=== PATIENT | male | born 1975 | race Caucasian/White ===

== ENCOUNTER 2025-09-09 10:36 | Inpatient (IN) | payer OTHER, SELFPAY ==
[2025-09-09] VITALS (7 sets, daily range): BP systolic 121–181; BP diastolic 65–106; BMI 32.3; BMI 32.5
--- NOTE | 2025-09-09 08:13 | ED.GENMED ---
History of Present Illness
<Ayde Platt PA-C - Last Filed: 09/09/25 15:01>
General
Chief Complaint: Skin Surface Trauma
Time Seen by Provider: 09/09/25 07:35
History of Present Illness
History of Present Illness:
See MDM
Phy Exam
<Ayde Platt PA-C - Last Filed: 09/09/25 15:01>
Physical Exam
Physical Exam:
GENERAL: Alert , in no apparent distress, comfortable at rest
HEAD: NCAT
CV: Mildly tachycardic, DP pulses bilaterally intact
Lungs clear
NEUROLOGICAL: Alert and oriented, no focal neuro deficits, , 5/5 strength, sensation intact, ambulation slight limp right leg
SKIN: Warm and dry, patient has a large 5 cm blister to the plantar aspect of his right foot midfoot region and extending to the distal metatarsal region with some serous drainage, moderate soft tissue swelling to the whole foot, mild erythema to
the dorsum of the foot just proximal to the 4th and 5th toes with warmth, no significant tenderness
MUSCULOSKELETAL: mild STS right ankle with tenderness to malleolus medially; pain with inversion and eversion;
no tenderness at the base of the 5th metatarsal, no other foot tenderness
no knee/prox tib/fib tenderness, full painless ROM;
PSYCH: Normal and appropriate interaction.
Course
<Ayde Platt PA-C - Last Filed: 09/09/25 15:01>
Orders/Labs/Results
Orders:
Orders
09/09/25 Breakfast
2200 calorie (18 carb) Diabetic
At Your Request: Full Participation
Does patient need a safe tray?: No
09/09/25 07:47
CR Foot - Right Min 3 Views Urgent
Comment:
Reason For Exam: chornic wound, concern for osteo
09/09/25 07:48
Cardiac Monitoring- Treatment ONCE
0.9% Sodium Chloride 1000 ml [Nss] 1,000 ml IV BOLUS
09/09/25 08:16
Complete Blood Count/With Diff Urgent
Comprehensive Metabolic Panel Urgent
Hemoglobin A1c [Glycohemoglobin (HgbA1c)] Urgent
Lactic Acid Urgent
Blood Culture Q30M
KELLY Source: Blood/Venous
Specimen Description:
Blood Culture Q30M
KELLY Source: Blood/Venous
Specimen Description:
09/09/25 09:04
Ampicillin/Sulbactam 3 G [Unasyn] 3 gm 0.9% Sodium Chloride 100 ml [Nss] 100 ml IV NOW
Vancomycin [Vancocin] 2,000 mg 0.9% Sodium Chloride 500 ml [Nss] 500 ml IV NOW
09/09/25 09:46
Admit/Transfer Patient As Directed
Co-Sign Provider:
Level of Care: Inpatient admission
Assign to:: Telemetry
Physician / Group: Hospitalist
Diagnosis: Cellulitis right foot
Reason for Telemetry: Arrhythmia
Date to Stop Telemetry: 09/12/25
Time to Stop Telemetry: 11:00
Reason for Hospitalization: Cellulitis right foot
Expected length of stay greater than two midnights?: Yes
ELOS- Estimated Length of Stay in days: 2
I certify the patient meets the requirements for IP care: Yes
PRN Pain Medication Management As Directed
May give lesser potent ordered pain med per pt: Yes
preference::
Protocol:: Medication orders for pain may be administered in a
manner that supports deferring to patient preference
when the pt is:
- Requesting an ordered lesser potent pain medication.
Least to most potent pain medications are defined
as: acetaminophen < NSAID < tramadol < opioids
(morphine, oxycodone, hydromorphone).
- Requesting a lesser dose of the same medication IF
ORDERED.
- Requesting a less intrusive route of administration
if both routes are prescribed by the provider (PO <
IV).
09/09/25 09:47
Code Status As Directed
Resuscitation Status: Full Code
09/09/25 09:56
EKG [Electrocardiogram (*1)] Stat
Reason for Study: Tachycardia
Metoprolol [Lopressor] 5 mg IV NOW STA
09/09/25 12:17
Dextrose 50%-Water [Dextrose 50% Syringe] 12.5 grams IV [id number] PRN
Glucagon [GlucaGen] 1 mg IM PRN PRN
Insulin Aspart Corrective Low [Novolog Flexpen-Low Resistance] See Protocol SC AC
Metoprolol [Lopressor] 5 mg IV Q6HPRN PRN
09/09/25 12:17
INFECTIOUS DISEASE CONSULT Routine
Consulting Provider: Melba Mcgovern
Was physician already notified: Yes
PODIATRY CONSULT Routine
Consulting Provider: Julianna Massey
Was physician already notified: Yes
Activity As Directed
Activity Level: Out of Bed-Early Mobility
Bedside Glucose Monitoring As Directed
Frequency: AC&HS
Additional Instructions:: Change to q6h if pt on TPN, tube feeding or not eating
Intake/ Output As Directed
Frequency: Per unit guidelines
Vital Signs As Directed
Frequency: Per unit guidelines
DX Deep Vein Thrombosis Video Routine
09/09/25 14:00
Piperacillin/Tazo 3.375 Gram [Zosyn] 3.375 gram in 50 ml IV Q6H
09/09/25 18:00
Enoxaparin Sodium [Lovenox] 40 mg SC QPM
09/10/25 06:00
Complete Blood Count/With Diff IN AM
Comprehensive Metabolic Panel IN AM
09/12/25 11:00
DC Protocol for Telemetry ONCE
Abnormal Lab Results
09/09/25
08:16
WBC 14.1 H 10^3/uL
(4.8-10.8)
MCV 79.6 L fL
(80.0-94.0)
MCH 26.8 L pg
(27.0-31.0)
Abs Immat Gran (auto) 0.1 H 10^3/uL
(0-0.05)
Absolute Neuts (auto) 11.3 H 10^3/uL
(1.4-6.5)
Absolute Monos (auto) 1.3 H 10^3/uL
(0.1-0.6)
Immature Gran % 0.7 H %
(0-0.5)
Neutrophils % 80.3 H %
(42.2-75.2)
Lymphocytes % 8.5 L %
(20.5-51.1)
Monocytes % 9.4 H %
(1.7-9.3)
Sodium 133 L mmol/L
(135-145)
Chloride 94 L mmol/L
(98-107)
Creatinine 0.6 L mg/dL
(0.7-1.3)
Glucose 253 H mg/dl
(70-99)
Hemoglobin A1c 11.4 H %
(4.0-5.9)
09/09/25 08:16
09/09/25 08:16
Vital Signs
Initial and Last Documented VS:
Initial Vital Signs
Temp Pulse Resp BP Pulse Ox
37.5 C 120 20 159/106 97
09/09/25 06:17 09/09/25 06:17 09/09/25 06:17 09/09/25 06:17 09/09/25 06:17
Last Documented Vital Signs
Temp Pulse Resp BP Pulse Ox
37.0 C 118 18 181/100 97
09/09/25 12:26 09/09/25 12:26 09/09/25 12:26 09/09/25 12:26 09/09/25 12:26
<Pasquale Luciano MD - Last Filed: 09/09/25 08:14>
Orders/Labs/Results
Orders:
Orders
09/09/25 Breakfast
2200 calorie (18 carb) Diabetic
At Your Request: Full Participation
Does patient need a safe tray?: No
09/09/25 07:47
CR Foot - Right Min 3 Views Urgent
Comment:
Reason For Exam: chornic wound, concern for osteo
09/09/25 07:48
Cardiac Monitoring- Treatment ONCE
0.9% Sodium Chloride 1000 ml [Nss] 1,000 ml IV BOLUS
09/09/25 08:16
Complete Blood Count/With Diff Urgent
Comprehensive Metabolic Panel Urgent
Hemoglobin A1c [Glycohemoglobin (HgbA1c)] Urgent
Lactic Acid Urgent
Blood Culture Q30M
KELLY Source: Blood/Venous
Specimen Description:
Blood Culture Q30M
KELLY Source: Blood/Venous
Specimen Description:
09/09/25 09:04
Ampicillin/Sulbactam 3 G [Unasyn] 3 gm 0.9% Sodium Chloride 100 ml [Nss] 100 ml IV NOW
Vancomycin [Vancocin] 2,000 mg 0.9% Sodium Chloride 500 ml [Nss] 500 ml IV NOW
09/09/25 09:46
Admit/Transfer Patient As Directed
Co-Sign Provider:
Level of Care: Inpatient admission
Assign to:: Telemetry
Physician / Group: Hospitalist
Diagnosis: Cellulitis right foot
Reason for Telemetry: Arrhythmia
Date to Stop Telemetry: 09/12/25
Time to Stop Telemetry: 11:00
Reason for Hospitalization: Cellulitis right foot
Expected length of stay greater than two midnights?: Yes
ELOS- Estimated Length of Stay in days: 2
I certify the patient meets the requirements for IP care: Yes
PRN Pain Medication Management As Directed
May give lesser potent ordered pain med per pt: Yes
preference::
Protocol:: Medication orders for pain may be administered in a
manner that supports deferring to patient preference
when the pt is:
- Requesting an ordered lesser potent pain medication.
Least to most potent pain medications are defined
as: acetaminophen < NSAID < tramadol < opioids
(morphine, oxycodone, hydromorphone).
- Requesting a lesser dose of the same medication IF
ORDERED.
- Requesting a less intrusive route of administration
if both routes are prescribed by the provider (PO <
IV).
09/09/25 09:47
Code Status As Directed
Resuscitation Status: Full Code
09/09/25 09:56
EKG [Electrocardiogram (*1)] Stat
Reason for Study: Tachycardia
Metoprolol [Lopressor] 5 mg IV NOW STA
09/09/25 12:17
Dextrose 50%-Water [Dextrose 50% Syringe] 12.5 grams IV [id number] PRN
Glucagon [GlucaGen] 1 mg IM PRN PRN
Insulin Aspart Corrective Low [Novolog Flexpen-Low Resistance] See Protocol SC AC
Metoprolol [Lopressor] 5 mg IV Q6HPRN PRN
09/09/25 12:17
INFECTIOUS DISEASE CONSULT Routine
Consulting Provider: Melba Mcgovern
Was physician already notified: Yes
PODIATRY CONSULT Routine
Consulting Provider: Julianna Massey
Was physician already notified: Yes
Activity As Directed
Activity Level: Out of Bed-Early Mobility
Bedside Glucose Monitoring As Directed
Frequency: AC&HS
Additional Instructions:: Change to q6h if pt on TPN, tube feeding or not eating
Intake/ Output As Directed
Frequency: Per unit guidelines
Vital Signs As Directed
Frequency: Per unit guidelines
DX Deep Vein Thrombosis Video Routine
09/09/25 14:00
Piperacillin/Tazo 3.375 Gram [Zosyn] 3.375 gram in 50 ml IV Q6H
09/09/25 18:00
Enoxaparin Sodium [Lovenox] 40 mg SC QPM
09/10/25 06:00
Complete Blood Count/With Diff IN AM
Comprehensive Metabolic Panel IN AM
09/12/25 11:00
DC Protocol for Telemetry ONCE
Abnormal Lab Results
09/09/25
08:16
WBC 14.1 H 10^3/uL
(4.8-10.8)
MCV 79.6 L fL
(80.0-94.0)
MCH 26.8 L pg
(27.0-31.0)
Abs Immat Gran (auto) 0.1 H 10^3/uL
(0-0.05)
Absolute Neuts (auto) 11.3 H 10^3/uL
(1.4-6.5)
Absolute Monos (auto) 1.3 H 10^3/uL
(0.1-0.6)
Immature Gran % 0.7 H %
(0-0.5)
Neutrophils % 80.3 H %
(42.2-75.2)
Lymphocytes % 8.5 L %
(20.5-51.1)
Monocytes % 9.4 H %
(1.7-9.3)
Sodium 133 L mmol/L
(135-145)
Chloride 94 L mmol/L
(98-107)
Creatinine 0.6 L mg/dL
(0.7-1.3)
Glucose 253 H mg/dl
(70-99)
Hemoglobin A1c 11.4 H %
(4.0-5.9)
09/09/25 08:16
09/09/25 08:16
Vital Signs
Initial and Last Documented VS:
Initial Vital Signs
Temp Pulse Resp BP Pulse Ox
37.5 C 120 20 159/106 97
09/09/25 06:17 09/09/25 06:17 09/09/25 06:17 09/09/25 06:17 09/09/25 06:17
Last Documented Vital Signs
Temp Pulse Resp BP Pulse Ox
37.0 C 118 18 181/100 97
09/09/25 12:26 09/09/25 12:26 09/09/25 12:26 09/09/25 12:26 09/09/25 12:26
<Ayde Platt PA-C - Last Filed: 09/09/25 15:01>
MDM/Problems Addressed
Differential Diagnosis Includes:
see MDM
MDM/Problems Addressed:
Note:
CHIEF COMPLAINT(S)
Blister on foot and recent pain.
HISTORY OF PRESENT ILLNESS
The patient is a 49-year-old male does not seek medical attention in years, who presents with a blister on his foot. Four months ago, the patient stepped into a wet puddle and subsequently developed a blister approximately the size of a tennis ball.
The blister initially improved but never fully healed. Approximately two weeks ago, the pain intensified, especially when walking. The patient notes no numbness, but increasing pain in the last two weeks. Patient reports chills that lasted for
three to four days about a week ago, though he experienced no fever. There was hesitance in seeking medical care initially.
he has redness and some drainage on the plantar aspect of the foot
says 'my ankle is turned inward slightly'
no numbness
no known diabetes
did not step on any foreign object
PAST MEDICAL AND SURIGICAL HISTORY
- No past medical history reported.
SOCIAL HISTORY
- No reported smoking, alcohol, or drug use.
MEDICATIONS
- The patient is not taking any chronic medication.
REVIEW OF SYSTEMS
- Integumentary: Recurrent blister on the foot for four months, worsening pain over the past two weeks.
- Neurological: Denies numbness in lower extremities.
- Systemic: Recent history of chills without fever.
PHYSICAL EXAM
- Nursing notes reviewed and vital signs reviewed.
- Findings by system:
- Integumentary: Blister on the foot, persistent for four months. No specific details of inspection provided.
- Neurological: No numbness reported.
PLAN
- The plan includes obtaining X-rays and blood work to assess for infection.
- Concern was raised regarding potential underlying diabetes, given the history and presentation.
- Consideration for hospital admission and intravenous antibiotics if there is suspicion of a bone infection.
- Discussed the risks of infection spreading to the bone and the need for an MRI as definitive investigation if required.
DIFFERENTIAL DIAGNOSIS
The Differential Diagnosis includes, in no particular order and is not limited to:
1. Cellulitis
2. Osteomyelitis
3. Diabetic foot ulcer
4. Venous stasis ulcer
5. Peripheral neuropathy
6. Contact dermatitis
7. Deep vein thrombosis
8. Gout
9. Lymphedema
10. Peripheral artery disease
09/09/25 - 09:18
Patients blood sugar levels are elevated, patient likely with diabetes as her random blood sugar was over 250. X-ray independently reviewed by me was negative for obvious osteo however this does not definitively diagnose osteomyelitis. Given his
new onset diabetes with a obvious cellulitis purulent looking foot infection will admit for IV antibiotics.
<Ayde Platt PA-C - Last Filed: 09/09/25 15:01>
*Pulse Oximetry
Patient hypoxic: no (97)
*Critical Care Note
Total Time (30-74mins, 75-104mins- exclusive of procedures): Not Applicable
<Pasquale Luciano MD - Last Filed: 09/09/25 08:14>
*Pulse Oximetry
SaO2: 97
Oxygen Mode of Delivery: Room air
ED Attending Note
<Pasquale Luciano MD - Last Filed: 09/09/25 08:14>
ED Attending Note
Patient seen and examined by attending physician: Yes
I performed the substantive portion of visit, reviewed & personally made and approve the management plan that is documented in note by myself or ULICES.: Yes
ED Attending Note:
Patient with an ongoing nonhealing wound with recurrent blistering to the right foot. Symptoms have been worse the last 3 to 4 days. Encouraged to get checked. Some slight chills last evening no fever. Does not typically seek medical care. No
known medical issues.
On exam patient is nontoxic. He is mildly tachycardic and hypertensive. He is warm and dry perfusing well no respiratory distress. Right foot has erythema and swelling with swelling both on the plantar aspect and dorsal aspect. Erythema 3rd and
4th MTP area. Some drainage on the plantar surface.
Impression is cellulitis to the right foot. Would also consider a secondary osteomyelitis. Workup in progress. Clearly requires admission and IV antibiotics
-
Portions of this chart may have been created with voice recognition software.� Occasional wrong word or��sound alike� substitutions may have occurred due to the inherent limitations of voice recognition software.
Discharge Plan
Departure
Patient Disposition: Admit
Date of Disposition: 09/09/25
Time of Disposition: 08:59
Admit to: Med/Surg
Presentation/result/management discussed w/ accepting MD/DO: Hospitalist
Patient with high blood pressure during this ER visit?: Yes
Condition: Fair
Covid-19: Not Applicable
Discharge Problem:
Foot and toe(s), blister, infected, Cellulitis, Blood glucose elevated
Interventions
Interventions:
*Risk Screen - Suicide Last Done: 09/09/25 06:17
*General Assessment Last Done: 09/09/25 06:17
*Neglect/Abuse Screening Last Done: 09/09/25 06:17
*ED- Fall Risk Assessment Last Done: 09/09/25 06:17
*ED COVID-19 Vaccine History Last Done: 09/09/25 06:17
*ED Influenza Vaccine History Last Done: 09/09/25 06:17
*Nursing Disposition Last Done: 09/09/25 12:10
ED-Skin Assessment Last Done: 09/09/25 08:06
Discharge Date and Time
Discharge Date/Time: 09/09/25 12:16
[2025-09-09] MEDS: NSS 1000 IV (08:15)
[2025-09-09 08:29] LABS: Hematocrit 41.0 % (39.0-52.0); Hemoglobin 13.8 g/dL (13.0-18.0); Mean Corp Hgb Conc. 33.7 g/dL (33.0-37.0); Mean Corpuscular Volume 79.6 fL (80.0-94.0); Nucleated Red Blood Cells % 0 % (-); Platelet Count 341 10^3/uL (130-400); Red Cell Dist. Width 12.4 % (11.5-14.5)
[2025-09-09 08:42] LABS: ALT (SGPT) 24 U/L (0-50); AST (SGOT) 22 U/L (17-59); Albumin 4.0 g/dl (3.5-5.0); Alkaline Phosphatase 122 U/L (38-126); Blood Urea Nitrogen 15 mg/dl (9-20); Calcium 8.9 mg/dl (8.4-10.2); Carbon Dioxide 30 mmol/L (22-30); Chloride 94 mmol/L (98-107); Estimated Creatinine Clearance > 125 ml/min; Glucose 253 mg/dl (70-99); Potassium 3.6 mmol/L (3.5-5.1); Sodium 133 mmol/L (135-145); Total Protein 7.1 g/dl (6.3-8.2); eGFR > 60.00
--- NOTE | 2025-09-09 09:09 | HPS.HSE ---
Addendum entered and electronically signed by Ty Edgar MD 09/09/25 14:44:
I personally performed a history and physical exam of the patient and discussed management with the resident. I reviewed the resident's note and agree with the documented findings and plan of care HPI/CC.
49-year-old male without significant past medical history and does not follow-up with primary care provider came to the hospital with worsening right foot swelling and redness. Physical exam consistent with cellulitis. X-rays negative for
osteomyelitis. Consult podiatry and infectious disease. Blood culture drawn in the ED. Continue with empiric antibiotic. Blood sugar also elevated in the ED. Check A1c.
Cellulitis likely secondary to diabetic foot wound
Continue with empiric antibiotics
Podiatry evaluation, ID evaluation
Wound culture
X-ray negative for osteomyelitis
Hyponatremia
Monitor
Hypertension in the ED
No prior history
Likely new onset, start amlodipine. Metoprolol as needed
Hyperglycemia
No prior history of diabetes
Check A1c
Insulin sliding scale
DVT prophylaxis
Lovenox
Full code
Constitutional: No Acute Distress
Cardiovascular: Regular Rate and S1/S2; Negative Murmur
Pulmonary: Clear and Symmetric; Negative Wheezes, Rales or Rhonchi
Gastrointestinal: Soft, Non Tender, Non Distended and Normal Bowel Sounds
: no [place] val[place]
Wound: Other (callous over the right metatarsal heads, midfoot with large superficial blister draining purulent fluid)
I spent a total of 77 minutes with the patient or on the floor. More than 50% of this time involved counseling and coordination of care.
Original Note:
Family Physician
-
Family Physician: * NONE
Chief Complaint
-
Right foot cellulitis
History of Present Illness
49-year-old male with no significant past medical history and who does not see a primary care in years presents with a blister on his right foot. Patient reports that it started as a blister after stepping into a wet puddle, initially it has
improved well and was fully healed. But later 2 weeks ago he noticed another blister, which popped and pain when walking which has worsened, also reports some purulent drainage from the plantar aspect of the foot. And noticed his ankle was turned
inward slightly. Patient denies numbness/weakness in the left foot, no recent trauma. He denies fever, but reports having chills for 3/4 days in the past week. No chest pain, abdominal pain, SOB, lightheadedness/dizziness, bladder/bowel
disturbances.He does not take any medications on a regular basis. Used Tylenol/aspirin as needed for the pain.
ED course�BP�159/106, pulse 120, temperature 99.5. Elevated white count 14.1, sodium�133, BUN/creatinine�15/0.5, glucose 253. Lactate�1.0.
X-ray of the right foot�no evidence of osteomyelitis.Tissue visualized bilateral plate screw within the distal fibula and surgical screw within the medial malleolus.
Medical History
Past Medical History
Past Medical History: Reports None
Past Surgical History: Reports Orthopedic and Other
Social History
Tobacco: Non-smoker
Alcohol: None
Drug: None
Personal: Single
Living: Alone
Employment: Not Employed
Family History
Family History: Not pertinent
Allergies / Home Medications
Allergies reflects when Allergies were last updated in [employer].
Home Medications with original date entered in [employer]
Allergy/Medication List:
Allergies
Allergy/AdvReac Type Severity Reaction Status Date / Time
No Known Allergies Allergy Unverified 09/09/25 06:17
Home Medications
No Meds [No Current Medications] 09/09/25
Review of Systems
-
A 12 point ROS was completed and negative except as noted: Yes
Physical Exam
Vital Signs
Vital Signs
Temp Pulse Resp BP Pulse Ox
99.5 F 120 20 159/106 97
09/09/25 06:17 09/09/25 06:17 09/09/25 06:17 09/09/25 06:17 09/09/25 08:14
Physical Exam
General: Well Developed, Well Nourished and No Apparent Distress
HEENT: NormoCephalic and Atraumatic
Respiratory: Clear
Cardiac: S1/S2 and Tachycardia
GI: Soft, Non Tender, Non Distended and Normal Bowel Sounds
Musculoskeletal: Other (Right foot-distal neurovasculature, sensations intact. ROM good at the ankle joint. ROM restricted at the metatarsal phalangeal joints due to stiffness from the wound. DP pulses normal.)
Skin: Warm, Dry and Other (1 healed wound on the plantar surface, another blister posterior to the healed scar, wound area of approximately 1.5 X1 0.5 inches, tender, erythematous, draining serosanguineous fluid. There is some erythema on the
dorsal aspect of the foot.)
Neuro: Awake, Alert, Oriented and AO x 3
Laboratory Results
-
09/09/25 08:16
09/09/25 08:16
Laboratory Results
Lactic Acid 1.0 mmol/L (0.7-2.0) 09/09/25 08:16
Total Bilirubin 1.2 mg/dl (0.2-1.3) 09/09/25 08:16
AST 22 U/L (17-59) 09/09/25 08:16
ALT 24 U/L (0-50) 09/09/25 08:16
Alkaline Phosphatase 122 U/L (38-126) 09/09/25 08:16
Impression/Plan
-
IMPRESSION: 49-year-old presenting with wounds on the plantar surface of the right foot.
PLAN:
#Right foot infection
Elevated white count, patient is mildly tachycardic.
Likely cellulitis versus osteomyelitis versus diabetic foot ulcer versus abscess
Will check blood cultures
Start vancomycin, Zosyn
Consulted podiatry
Consulted infectious disease
Monitor fever curve. Monitor CBC
X-ray foot with no evidence of osteomyelitis
Will consider MRI, pending podiatry evaluation as the patient has chronic foot wound for the past 4 months.
Elevated blood sugars�253, patient has not seen a medical provider in years and was never diagnosed with diabetes
Will check HbA1c
Will add SSI
Admit to telemetry
#Elevated blood pressure
No prior history of hypertension
Will do Lopressor IV 5 mg as needed
Check EKG
May eventually need to be started on blood pressure medications if BP remains elevated during the hospital stay
Diet�carb controlled
DVT prophylaxis�Lovenox
Full code
[2025-09-09] MEDS: UNASYN IV (09:29)
[2025-09-09] MEDS: VANCOCIN 540 MG IV (10:00)
[2025-09-09] MEDS: LOPRESSOR 5 MG IV ×2 (10:40→15:18)
[2025-09-09 11:06] LABS: Glycohemoglobin (HgbA1c) 11.4 % (4.0-5.9)
--- NOTE | 2025-09-09 11:29 | EDCM ---
CM reviewed chart and met with pt bedside in ED. Pt lives alone in 2 story home, 3 AMY, first floor full bath, full flight to second floor bedroom. Pt lives in [place] but has friends who are local to [place].
Independent in ADLs, personal care and ambulation at baseline. No assistive device.
Confirms prescription coverage.
No hx VN or SNF.
Does not have PCP, states he has not seen a doctor in 30 years
Pharmacy: [facility]
Anticipate discharge home, no needs, CM will continue to follow for any discharge planning needs.
--- NOTE | 2025-09-09 11:33 | CON.ID ---
Consultation
-
Date/Time Consultation Requested: 09/09/25 10:02
Date/Time Consultation Performed: 09/09/25 11:34
Requesting Provider: Dr Yañez
Performing Provider: Dr Mcgovern
Reason for Consultation: right foot infection
Chief Complaint / Past History
Chief Complaint
right foot redness
History of Present Illness
Mr Sanchez is a 49 year old male does not attend medical visits now with newly diagnosed DM2 (a1c 11.4), obese who presented here today for a blister on the plantar surface of the right foot. he first began with a blister over the plantar
metatarsal heads in June after a day of walking. He attributed it to stepping in a puddle. The blister spontaneously popped and drained and he dressed it with gauze. The lesion has collapsed into a callous that he describes as slowly healing
with local care. Then about a week and a half ago he developed a second blister in the midfoot it spontaneously popped while walking and he developed pain and purulent drainage from the lesion. he reports no documented fevers but has had chills
for 3-4 days. He has been taking tylenol and aspirin as needed for the pain.
Since arrival here he has been afebrile, bp stable, wbc count 14.1, hgb 13.8, plt 341, L shift was present, na 133, cr 0.6, glucose 253 and a1c 11.4, lactic acid 1.0, foot xray without osseous abnormalities, blood cultures x2 in progress. Patient
is currently on vancomycin and zoysn
Past History
Additional Past Medical History:
none
Additional Past Surgical History:
right ankle fixation
Allergy History:
No Known Allergies Allergy (Unverified 09/09/25 06:17)
Medications Reviewed: Yes
Social History
Tobacco: Non-Smoker
Alcohol: None
Drug: None
Family History
Family History: Not Pertinent
Review of Systems
Vital Signs
Temp Pulse Resp BP Pulse Ox
99.5 F 107 24 160/90 93
09/09/25 06:17 09/09/25 10:40 09/09/25 09:15 09/09/25 10:40 09/09/25 09:15
Physical Exam
Physical Exam
Constitutional: No Acute Distress
Cardiovascular: Regular Rate and S1/S2; Negative Murmur or Rub
Pulmonary: Clear and Symmetric; Negative Wheezes, Rales or Rhonchi
Gastrointestinal: Soft, Non Tender, Non Distended and Normal Bowel Sounds
Skin: Warm and Dry; Negative Rash or Jaundice
Wound: Other (callous over the right metatarsal heads, midfoot with large superficial blister spontaneously draining purulent fluid)
Lab / Diagnostic Study Results
09/09/25 08:16
09/09/25 08:16
Abs Immat Gran (auto) 0.1 10^3/uL (0-0.05) H 09/09/25 08:16
Absolute Neuts (auto) 11.3 10^3/uL (1.4-6.5) H 09/09/25 08:16
Absolute Lymphs (auto) 1.2 10^3/uL (1.2-3.4) 09/09/25 08:16
Absolute Monos (auto) 1.3 10^3/uL (0.1-0.6) H 09/09/25 08:16
Absolute Basos (auto) 0.0 10^3/uL (0-0.2) 09/09/25 08:16
Immature Gran % 0.7 % (0-0.5) H 09/09/25 08:16
Neutrophils % 80.3 % (42.2-75.2) H 09/09/25 08:16
Lymphocytes % 8.5 % (20.5-51.1) L 09/09/25 08:16
Monocytes % 9.4 % (1.7-9.3) H 09/09/25 08:16
Eosinophils % 0.8 % (0-6) 09/09/25 08:16
Basophils % 0.3 % (0-2) 09/09/25 08:16
Lactic Acid 1.0 mmol/L (0.7-2.0) 09/09/25 08:16
Microbiology Results
Micro:
09/09/25 08:16 Blood Culture - Pending
Blood/Venous
09/09/25 08:16 Blood Culture - Pending
Blood/Venous
Assessment / Plan
Diabetic Foot Infection
DM2
- blood cultures x2 in progress
- wound culture taken by me
- MRSA screen pending
- Xray without evidence of osteomyelitis, blister continues to appear superficial,
- recommend tight blood glucose control to facilitate wound healing - discussed with patient
- continue vancomycin and zosyn
- podiatry consulted
[2025-09-09 12:56] LABS: Glucose - Point of Care 185 mg/dl (70-99)
--- NOTE | 2025-09-09 13:23 | PHA.VAN.IN ---
Assessment
- Assessment
Renal Function: Appears similar to baseline
Concomitant Antimicrobials: piperacillin/tazobactam
AUC Dosing Plan
- Dosing Variables
Dosing Weight (kg): 115
Dosing CrCl (ml/min): 125
Vd coefficient (L/kg): 0.7
- Empiric Dosing
Initial / Loading Dose: 2000mg - 09/09 10:00
Maintenance Regimen: Vanc 1750mg Q12H - will give first dose at 2000 then 09/10 0600
Estimated AUC (mcg*h/mL): 446
Estimated Peak (mcg*h/mL): 29.9
Estimated Trough (mcg/ml): 10.1
Estimated Half Life (H): 6.4
- Monitoring
No levels ordered at this time: consider levels in next few days
Pharmacokinetics Vancomycin I
- -
Patient Age: 49
Patient Sex: Male
Vancomycin Day #: 1
Indication: Skin And Soft Tissue
Requesting Provider: Dr. Cathy Yañez (resident)
Pertinent Antimicrobial Allergies:
NKDA
Height / Weight:
Height 6 ft 2 in
Actual Weight 114.872 kg
Pertinent Past Medical History: BMI ~33, DM2
- Vital Signs / Lab Results
Temp Pulse Resp BP Pulse Ox
98.6 F 118 18 181/100 97
09/09/25 12:26 09/09/25 12:26 09/09/25 12:26 09/09/25 12:26 09/09/25 12:26
Lab Results - Hematology
09/09/25
08:16
WBC 14.1 H
Lab Results - Chemistry
09/09/25
08:16
BUN 15
Creatinine 0.6 L
Estimated Creat Clear > 125
Albumin 4.0
09/09/25
08:16
Lactic Acid 1.0
[2025-09-09] MEDS: ZOSYN 50 IV ×2 (13:39→20:09)
[2025-09-09] MEDS: NOVOLOG FLEXPEN-LOW RESISTANCE 1 UNITS SC (13:42)
[2025-09-09] MEDS: NORVASC 5 MG PO (15:17)
[2025-09-09 16:43] LABS: Glucose - Point of Care 221 mg/dl (70-99)
[2025-09-09] MEDS: NOVOLOG FLEXPEN-LOW RESISTANCE 2 UNITS SC (16:58)
[2025-09-09] MEDS: LOVENOX SC (17:01)
[2025-09-09] MEDS: VANCOCIN 535 MG IV (20:10)
[2025-09-09 21:52] LABS: Glucose - Point of Care 245 mg/dl (70-99)
[2025-09-10] MEDS: ZOSYN 50 IV ×4 (02:18→20:15)
[2025-09-10 03:13] VITALS: BP 136/80
[2025-09-10] MEDS: VANCOCIN 535 MG IV (06:08)
[2025-09-10 06:32] LABS: Hematocrit 34.8 % (39.0-52.0); Hemoglobin 11.9 g/dL (13.0-18.0); Mean Corp Hgb Conc. 34.2 g/dL (33.0-37.0); Mean Corpuscular Volume 78.2 fL (80.0-94.0); Nucleated Red Blood Cells % 0 % (-); Platelet Count 304 10^3/uL (130-400); Red Cell Dist. Width 12.3 % (11.5-14.5)
[2025-09-10 06:51] LABS: ALT (SGPT) 19 U/L (0-50); AST (SGOT) 16 U/L (17-59); Albumin 3.2 g/dl (3.5-5.0); Alkaline Phosphatase 97 U/L (38-126); Blood Urea Nitrogen 12 mg/dl (9-20); Calcium 8.4 mg/dl (8.4-10.2); Carbon Dioxide 32 mmol/L (22-30); Chloride 97 mmol/L (98-107); Estimated Creatinine Clearance > 125 ml/min; Glucose 201 mg/dl (70-99); Potassium 3.3 mmol/L (3.5-5.1); Sodium 132 mmol/L (135-145); Total Protein 5.9 g/dl (6.3-8.2); eGFR > 60.00
[2025-09-10 07:00] VITALS: BP 148/94
[2025-09-10 07:59] LABS: Glucose - Point of Care 193 mg/dl (70-99)
--- NOTE | 2025-09-10 08:46 | W.CS.POD ---
Consult Summary - Podiatry
-
This patient is a very pleasant, 49 year old male, newly diagnosed diabetic, who was admitted to the ER yesterday with right foot infection with cellulitis. The patient relates developing a blister under the ball of the foot 1-2 months ago after
walking all day in a water soaked shoe. This blister, asymptomatic, broke and drained and he dressed this daily until it dried out and seemed to heal. Approximately 1-2 weeks ago he noticed a much larger blister forming behind (proximal to) the
initial lesion which became quite painful, and from which he noticed purulent discharge. This prompted him to come to the ER.
Today he denies any fever, chills or sweats. No stiffness behind the right knee or in groin. He denies ever noticing numbness in his feet, nor burning or tingling sensations prior or during this issue development.
Afebrile, VSS
WBC 12.9 (14.1 on admission), left shift.
BG 201 (253 on admission, HbA1C 11.4)
Blood cultures: Negative-24 hours.
Right foot wound culture (09/09/25) prelim: moderate gram positive cocci
Right foot XRAYS (09/09/25):
Internal fixation in the ankle consistent with prior ORIF of bimalleolar fx. Increase in soft tissue density along the forefoot and midfoot plantarly. No cortical disruption, osseous erosion, or periosteal reaction noted. No radiographic evidence of
osteomyelitis. No gas in the tissues. Perhaps soft tissue defect appreciated plantarly in the forefoot.
LE exam:
NVS intact bilaterally.
There is moderate edema in the RIGHT forefoot, midfoot and less so in the hindfoot, right, with cellulitis noticeable along the base of the toes dorsally. No lymphangitis.
The plantar forefoot exhibits a 2cm round hyperkeratotic lesion in the described area of initial blistering, debrided to reveal a preulcerative lesion, otherwise stable.
Communicating proximal to this lesion is a much larger 5cm x 3.5cm bullous lesion extending into the midfoot, with mild purulent discharge upon debridement. The distal aspect of this more recent lesion exhibits one or two small defects from which
some viscous purulence is expressed and pain is elicited. No fluctuance noted, and no deep extension of the defects appreciated.
Assessment:
Diabetic foot infection, right, with clinical suspicion for deep abscess.
Leukocytosis
Plan:
-At bedside, with the use of a # 10 blade, the partial skin thickness hyperkeratotic and non-viable tissue was debrided to a healthy granular base, covering the extent of the initial and more recent bullous lesions 5-7cm x 4cm. Mild purulence was
expressed/encountered. The wound was irrigated with saline and dressed with betadine/dry gauze.
-The patient was advised to stay off the foot, walking on the heel alone to the bathroom only.
-Will order an MRI to determine presence of a deeper space abscess.
-ID note appreciated. Continue IV antibiotics. Await culture results.
-Will follow.
[2025-09-10] MEDS: NORVASC 5 MG PO (08:56)
[2025-09-10] MEDS: KCL 20 MEQ PO (08:56)
--- NOTE | 2025-09-10 09:23 | PHA.VAN.FU ---
Vancomycin Assessment / Plan
- Assessment
Renal Function: Stable
WBC's are: Trending Down
In the past 24 hrs, patient has been: Afebrile
Concomitant Antimicrobials: piperacillin/tazobactam
- Dosing Plan
Continue: Vanc 1750mg Q12H
- Monitoring Plan
No level(s) ordered at this time: consider levels in next few days
- Follow Up
Pharmacy will continue to follow.
Vancomycin Follow UP
- -
Patient Age: 49
Patient Sex: Male
Vancomycin Day #: 2
Indication: Skin And Soft Tissue
Requesting Provider: Dr. Cathy Yañez (resident)
Pertinent Antimicrobial Allergies:
NKDA
Height / Weight:
Height 6 ft 2 in
Actual Weight 114.872 kg
Pertinent Past Medical History: BMI ~33, DM2
- Vital Signs / Lab Results
Temp Pulse Resp BP Pulse Ox
98.5 F 98 17 148/94 98
09/10/25 07:00 09/10/25 07:00 09/10/25 07:00 09/10/25 07:00 09/10/25 07:00
Lab Results - Hematology
09/09/25 09/10/25
08:16 05:56
WBC 14.1 H 12.9 H
Lab Results - Chemistry
09/09/25 09/10/25
08:16 05:56
BUN 15 12
Creatinine 0.6 L 0.7
Estimated Creat Clear > 125 > 125
Albumin 4.0 3.2 L
09/09/25
08:16
Lactic Acid 1.0
Microbiology Results
09/09/25 08:16 Blood Culture - Preliminary
Blood/Venous No Growth in 24 hours- Final report to follow
09/09/25 08:16 Blood Culture - Preliminary
Blood/Venous No Growth in 24 hours- Final report to follow
09/09/25 12:03 Gram Stain - Preliminary
Foot - Right
[2025-09-10] MEDS: NOVOLOG FLEXPEN-LOW RESISTANCE 1 UNITS SC ×2 (10:02→17:43)
[2025-09-10 11:00] VITALS: BP 136/77
[2025-09-10 12:01] LABS: Glucose - Point of Care 253 mg/dl (70-99)
[2025-09-10] MEDS: NOVOLOG FLEXPEN-LOW RESISTANCE 3 UNITS SC (13:13)
--- NOTE | 2025-09-10 13:17 | W.PN.HOSP.TC ---
Today's Communication/Plan
-
Monitor vital signs and see plan
Start insulin
Diabetes RESIDENTIAL GAS HEAT TECHNICIAN consulted
MRI
Continue antibiotics
Assessment / Plan
Assessment / Plan
Cellulitis likely secondary to diabetic foot wound
Continue with empiric antibiotics
ID following
Podiatry following, status post debridement. MRI ordered
Wound culture pending
X-ray negative for osteomyelitis
Hyponatremia
Monitor
Hypokalemia
Replete
Hypertension in the ED
No prior history
Likely new onset, started amlodipine. Metoprolol as needed
Hyperglycemia
No prior history of diabetes
A1c 11.4, start insulin. Diabetes RESIDENTIAL GAS HEAT TECHNICIAN consult
Insulin sliding scale
DVT prophylaxis
Lovenox
Full code
Constitutional: No Acute Distress
Cardiovascular: Regular Rate and S1/S2; Negative Murmur
Pulmonary: Clear and Symmetric; Negative Wheezes, Rales or Rhonchi
Gastrointestinal: Soft, Non Tender, Non Distended and Normal Bowel Sounds
: no del valle
Wound: Other (callous over the right metatarsal heads, midfoot with large superficial blister draining purulent fluid)
I spent a total of 52 minutes with the patient or on the floor. More than 50% of this time involved counseling and coordination of care.
Anticipated Discharge: > 48 hours
Subjective/Interval History
-
Date of Service: September 10, 2025
Objective Data
-
Labs:
Laboratory Results
09/10/25
05:56
WBC 12.9 H
Hgb 11.9 L
Hct 34.8 L
Plt Count 304
Sodium 132 L
Potassium 3.3 L
Chloride 97 L
Carbon Dioxide 32 H
BUN 12
Creatinine 0.7
Glucose 201 H
Calcium 8.4
Total Bilirubin 1.0
AST 16 L
ALT 19
Alkaline Phosphatase 97
Vital Signs:
Vital Signs
Temp Pulse Resp BP Pulse Ox
98.8 F 107 17 136/77 95
09/10/25 11:00 09/10/25 11:00 09/10/25 11:00 09/10/25 11:00 09/10/25 11:00
I&O
09/09/25 09/10/25 09/11/25
06:59 06:59 06:59
Intake Total 980 / 980
Output Total 900 / 900
Balance 80 / 80
--- NOTE | 2025-09-10 13:57 | PN.DE.MGMTRT ---
Insulin Management
- -
09/10/2025: Diabetes Management Consult
49 year old male without significant past medical history and does not follow-up with primary care provider, who presented to the ED with worsening right foot swelling and redness consistent with cellulitis. X-rays negative for osteomyelitis. Noted
for elevated glucose of and an A1C of 11.45 on admission.
Pt awake, alert, oriented, sitting up in bed, offers no complaints, able to discuss diabetes care plan
Of note patient was not aware of diabetes Dx and does not regularly see his PCP for routine care.
States his blood sugar has been fluctuating and asking if it's due to the RLE cellulitis.
Glucose has been elevated since admission >250, was 245 @ HS, fasting 201 V, [address] Vickers has started him on basal bolus insulin- Lantus 15 units @ HS he will receive his 1st dose tonight, NovoLog 5 units AC, 1st dose scheduled for 1630
Pre-lunch glucose was 253, received 3 units of corrective insulin.
Will change AC dose to start now, give 5 units NovoLog and cont low corrective with meals. Start Metformin 500 mg BID, 1st dose with dinner
Discussed with Nurse. Will cont to follow
Pt will be seen by the Diabetes Nurse Educator for monitor and insulin instructions tomorrow.
Diabetes History
- -
Type of Diabetes: 2 requiring insulin
Pre-Admission Diabetes Regimen
09/10/25
05:56
Creatinine 0.7
Lab Results
Hemoglobin A1c 11.4 % (4.0-5.9) H 09/09/25 08:16
Insulin Pump Settings
IP Diabetes Regimen
09/09/25 09/09/25 09/10/25
16:41 21:50 05:56
Glucose 201 H
POC Glucose 221 H 245 H
09/10/25 09/10/25
07:57 11:59
Glucose
POC Glucose 193 H 253 H
Patient Education
[2025-09-10] MEDS: NOVOLOG FLEXPEN 5 UNITS SC ×2 (14:39→17:44)
--- NOTE | 2025-09-10 14:41 | W.PN.ID1 ---
Date of Service
Date of Service: September 10, 2025
Today's Communication
will follow up MRI
continue zosyn stop vancomycin
Assessment / Plan
Diabetic Foot Infection
DM2
- blood cultures x2 in progress
- wound culture - group B streptococcus
- MRSA screen negative
- Xray without evidence of osteomyelitis, MRI ordered for concern for deep abscess - will follow up
- recommend tight blood glucose control to facilitate wound healing - discussed with patient 09/09
- continue zosyn stop vancomycin
- podiatry consulted
Chief Complaint
-: Other (diabetic foot infection)
Subjective / Review of Systems
afebrile
bp stable
seen by podiatry and underwent debridement
Vital Signs / Physical Exam
Vital Signs
Vital Signs
Temp Pulse Resp BP Pulse Ox
98.8 F 107 17 136/77 95
09/10/25 11:00 09/10/25 11:00 09/10/25 11:00 09/10/25 11:00 09/10/25 11:00
Physical Exam
Constitutional: No Acute Distress
Cardiovascular: Regular Rate and S1/S2; Negative Murmur or Rub
Pulmonary: Clear and Symmetric; Negative Wheezes or Rales
Gastrointestinal: Soft, Non Tender, Non Distended and Normal Bowel Sounds
Skin: Warm and Dry; Negative Rash or Jaundice
Objective Data
Lab Data
Lab Results
09/10/25 05:56
09/10/25 05:56
Estimated Creat Clear > 125 ml/min 09/10/25 05:56
Lactic Acid 1.0 mmol/L (0.7-2.0) 09/09/25 08:16
Total Bilirubin 1.0 mg/dl (0.2-1.3) 09/10/25 05:56
AST 16 U/L (17-59) L 09/10/25 05:56
ALT 19 U/L (0-50) 09/10/25 05:56
Alkaline Phosphatase 97 U/L (38-126) 09/10/25 05:56
Most recent labs reviewed.
Micro Results:
09/09/25 12:57 MRSA Screen - Final
Nose No Methicillin Resistant Staphylococcus aureus isolated.
09/09/25 12:03 Wound Culture - Preliminary
Foot - Right Streptococcus agalactiae
Gram Stain - Preliminary
09/09/25 08:16 Blood Culture - Preliminary
Blood/Venous No Growth in 24 hours- Final report to follow
09/09/25 08:16 Blood Culture - Preliminary
Blood/Venous No Growth in 24 hours- Final report to follow
[2025-09-10 15:00] VITALS: BP 163/97
[2025-09-10 16:47] LABS: Glucose - Point of Care 183 mg/dl (70-99)
[2025-09-10] MEDS: LOVENOX 40 MG SC (17:44)
[2025-09-10] MEDS: GLUCOPHAGE 500 MG PO (17:46)
[2025-09-10 17:52] LABS: Glucose - Point of Care 285 mg/dl (70-99)
[2025-09-10 19:17] VITALS: BP 136/80
[2025-09-10 21:13] LABS: Glucose - Point of Care 228 mg/dl (70-99)
[2025-09-10] MEDS: LANTUS 0.15 UNITS SC (21:15)
[2025-09-10 23:33] VITALS: BP 147/89
[2025-09-11] VITALS (10 sets, daily range): BP systolic 114–172; BP diastolic 68–100
[2025-09-11] MEDS: ZOSYN 50 IV ×4 (01:33→21:07)
[2025-09-11 05:50] LABS: Hematocrit 35.3 % (39.0-52.0); Hemoglobin 11.9 g/dL (13.0-18.0); Mean Corp Hgb Conc. 33.7 g/dL (33.0-37.0); Mean Corpuscular Volume 78.6 fL (80.0-94.0); Nucleated Red Blood Cells % 0 % (-); Platelet Count 346 10^3/uL (130-400); Red Cell Dist. Width 12.5 % (11.5-14.5)
[2025-09-11 06:23] LABS: ALT (SGPT) 19 U/L (0-50); AST (SGOT) 16 U/L (17-59); Albumin 3.1 g/dl (3.5-5.0); Alkaline Phosphatase 91 U/L (38-126); Blood Urea Nitrogen 12 mg/dl (9-20); Calcium 8.4 mg/dl (8.4-10.2); Carbon Dioxide 31 mmol/L (22-30); Chloride 98 mmol/L (98-107); Estimated Creatinine Clearance > 125 ml/min; Glucose 169 mg/dl (70-99); Potassium 3.6 mmol/L (3.5-5.1); Sodium 135 mmol/L (135-145); Total Protein 5.9 g/dl (6.3-8.2); eGFR > 60.00
--- NOTE | 2025-09-11 07:43 | PN.DE.MGMTRT ---
Insulin Management
- -
09/11/2025: Diabetes Management Follow up
49 year old male without significant past medical history and does not follow-up with primary care provider, who presented to the ED with worsening right foot swelling and redness consistent with cellulitis. X-rays negative for osteomyelitis. Noted
for elevated glucose of and an A1C of 11.45 on admission.
Pt awake, alert, oriented, resting in bed, offers no complaints, able to discuss diabetes care plan
Of note patient was not aware of diabetes Dx and does not regularly see his PCP for routine care.
09/10 started Lantus and AC NovoLog. Glucose still elevated 183 to 285. Received 15 units Lantus @ HS, Fasting 169 V, 184 POC today
Will increase Lantus to 17 units @ HS and AC NovoLog to 8 units. Cont Metformin 500 mg BID and low corrective with meals.
Discussed with Nurse. Will cont to follow
Pt will be seen by the Diabetes Nurse Educator for monitor and insulin instructions today.
Diabetes History
- -
Type of Diabetes: 2 requiring insulin
Pre-Admission Diabetes Regimen
09/11/25
05:04
Creatinine 0.7
Lab Results
Hemoglobin A1c 11.4 % (4.0-5.9) H 09/09/25 08:16
Insulin Pump Settings
IP Diabetes Regimen
09/10/25 09/10/25 09/10/25
07:57 11:59 16:45
Glucose
POC Glucose 193 H 253 H 183 H
09/10/25 09/10/25 09/11/25
17:49 21:12 05:04
Glucose 169 H
POC Glucose 285 H 228 H
Patient Education
[2025-09-11 07:49] LABS: Glucose - Point of Care 184 mg/dl (70-99)
[2025-09-11] MEDS: NOVOLOG FLEXPEN 8 UNITS SC (08:22)
[2025-09-11] MEDS: NOVOLOG FLEXPEN-LOW RESISTANCE 1 UNITS SC ×2 (08:23→13:35)
[2025-09-11] MEDS: NORVASC 5 MG PO (08:24)
[2025-09-11] MEDS: GLUCOPHAGE 500 MG PO ×2 (08:24→18:15)
[2025-09-11] MEDS: NOVOLOG FLEXPEN SC ×3 (08:29→18:24)
[2025-09-11] MEDS: ZESTRIL 5 MG PO (10:35)
--- NOTE | 2025-09-11 11:32 | PTCARENOTE ---
09/11/2025 DIABETES EDUCATION CONSULT
I met with patient for diabetes education. Has L. foot wound, HbA1c 11.4%. States his A1c in the past was much less, recently has not been able to walk his normal 5+ miles a day and thinks this contributed to his elevated glucose. He also was not
taking medications or following up with PCP, plans to [facility] after discharge.
I educated on diabetes complications, A1c and blood sugar goals; reviewed signs and symptoms of hyperglycemia, hypoglycemia, and hypoglycemia protocol. I reviewed mechanism of action, and timing of long acting and rapid action/mealtime insulin.
Educated patient on proper insulin storage and administration technique, he provided a successful repeat demonstration. Provided pen needles for RN to assist patient with insulin injections with supervision while inpatient.
I provided verbal demonstration on use of glucometer, provided sample kit of Contour Next glucometer. I also reviewed benefits of a CGM, will place order at pharmacy upon discharge. Provided brochure for CGM instructions, asked patient to outreach
once discharged for additional support. Written material provided on importance of diabetes self management, insulin instructions, hypoglycemia protocol, and outpatient diabetes educations. Provided a list of local endocrinologists if he considers
specialist in the future. He has DM office phone # if questions or needs arise.
[2025-09-11 11:54] LABS: Glucose - Point of Care 183 mg/dl (70-99)
--- NOTE | 2025-09-11 12:32 | W.PN.HOSP.TC ---
Today's Communication/Plan
-
Monitor vitals
See plan
Continue with Zosyn
Plan for OR today for abscess drainage
cw amlodipine, add lisinopril
Assessment / Plan
Assessment / Plan
Cellulitis likely secondary to diabetic foot wound
Continue with Zosyn
ID following
Podiatry following, status post debridement. MRI negative for osteo however did not show deeper abscess. for OR today by podiatry
Wound culture growing strep
X-ray negative for osteomyelitis
Hyponatremia
Monitor
Hypokalemia
Replete
Hypertension in the ED
No prior history
Likely new onset, started amlodipine. Metoprolol as needed.
Start lisinopril
Hyperglycemia
No prior history of diabetes
A1c 11.4, start insulin. Diabetes IMPORT CLERK following. Titrate insulin
Insulin sliding scale
DVT prophylaxis
Lovenox
Full code
Constitutional: No Acute Distress
Cardiovascular: Regular Rate and S1/S2; Negative Murmur
Pulmonary: Clear and Symmetric; Negative Wheezes, Rales or Rhonchi
Gastrointestinal: Soft, Non Tender, Non Distended and Normal Bowel Sounds
: no del valle
Wound: bandage on foot wound
I spent a total of 51 minutes with the patient or on the floor. More than 50% of this time involved counseling and coordination of care.
Anticipated Discharge: > 48 hours
Subjective/Interval History
-
Date of Service: September 11, 2025
denies pain
Objective Data
-
Labs:
Laboratory Results
09/11/25
05:04
WBC 11.7 H
Hgb 11.9 L
Hct 35.3 L
Plt Count 346
Sodium 135
Potassium 3.6
Chloride 98
Carbon Dioxide 31 H
BUN 12
Creatinine 0.7
Glucose 169 H
Calcium 8.4
Total Bilirubin 0.4
AST 16 L
ALT 19
Alkaline Phosphatase 91
Vital Signs:
Vital Signs
Temp Pulse Resp BP Pulse Ox
99.0 F 87 18 141/84 94
09/11/25 11:00 09/11/25 11:00 09/11/25 11:00 09/11/25 11:00 09/11/25 11:00
I&O
09/10/25 09/11/25 09/12/25
06:59 06:59 06:59
Intake Total 980 / 980 800 / 800
Output Total 900 / 900
Balance 80 / 80 800 / 800
--- NOTE | 2025-09-11 13:29 | W.PN.POD ---
Today's Communication
Today's Communication
Patient to OR this afternoon for inscision and drainage of abscess, right foot.
Assessment / Plan
-
Assessment:
Diabetic foot infection, right, with clinical suspicion for deep abscess.
Leukocytosis
Plan:
-Once again, mild but persistent purulence was expressed/encountered along the central forefoot just proximal toe the metatarsal heads. MRI findings suggests possible abscess plantar to this area.
-Plan for Incision and drainage of plantar right foot to OR this afternoon. Patient made NPO. He has not eaten since breakfast this morning (8am).
-Discussed with patient the need for more definitive treatment of this infection, along with the benefits, risks and possible complications of planned surgery, including the possible need for further surgery.
-ID aware of planned treatment course.
Subjective
Chief Complaint
Diabetic foot infection, right foot.
Subjective
Patient seen at bedside. Comfortable. No fevers, chills or sweats.
Objective
Temp Pulse Resp BP Pulse Ox
99.0 F 87 18 141/84 94
09/11/25 11:00 09/11/25 11:00 09/11/25 11:00 09/11/25 11:00 09/11/25 11:00
09/11/25 05:04
09/11/25 05:04
Vital Signs and Lab results were reviewed.
Afebrile, VSS
WBC 11.7 (14.1 on admission)
BG 184 (253 on admission, HbA1C 11.4)
Blood cultures: Negative-48 hours.
Right foot wound culture (09/09/25): Strep Agalactiae
Right foot XRAYS (09/09/25):
Internal fixation in the ankle consistent with prior ORIF of bimalleolar fx. Increase in soft tissue density along the forefoot and midfoot plantarly. No cortical disruption, osseous erosion, or periosteal reaction noted. No radiographic evidence of
osteomyelitis. No gas in the tissues. Perhaps soft tissue defect appreciated plantarly in the forefoot.
LE exam:
VS intact bilaterally. Diminished sensation to the forefoot, bilaterally.
The edema and cellulitis in the RIGHT forefoot, midfoot has significantly reduced. No lymphangitis.
The plantar forefoot-distal lesion is closed, otherwise stable.
The proximal, much larger 5cm x 3.5cm lesion extending into the midfoot is also consolidating, however there is a 3cm x 3cm area with multiple, small, full skin thickness defects from which persistent viscous purulence is expressed and pain
elicited. No fluctuance noted, and no deep fascial extension of the defects appreciated.
09/11/25 MRI right foot, with and without contrast.
There is a rounded area of lack of enhancement which is within the flexor digitorum longus muscle. This focal area of lack of enhancement has intermediate T2-weighted signal, and findings suggest complex abscess or phlegmon. This area of
nonenhancement measures 1.4 cm transverse by 1.2 cm craniocaudal by 2.7 cm AP, and extends anteriorly along the plantar aspect of the muscle.
Additionally, there is an irregular area of decreased enhancement in the plantar subcutaneous soft tissues of the right foot, adjacent to the soft tissue wound. This would suggest some locally devitalized soft tissues. This region measures
approximately 5.5 cm transverse by 4.2 cm AP, and extending approximately 1.4 cm craniocaudal.
No evidence of osteomyelitis.
[2025-09-11 13:35] LABS: Glucose - Point of Care 151 mg/dl (70-99)
--- NOTE | 2025-09-11 13:51 | W.PN.ID1 ---
Date of Service
Date of Service: September 11, 2025
Today's Communication
continue zosyn
Assessment / Plan
Diabetic Foot Infection
DM2
- blood cultures x2 in progress
- wound culture - group B streptococcus
- MRSA screen negative
- Xray without evidence of osteomyelitis, MRI with complex abscess/myositis in flexor digitorum longus and cellulitis; no evidence of osteomyelitis
- recommend tight blood glucose control to facilitate wound healing - discussed with patient 09/09
- continue zosyn while inpatient, on discharge can transition to augmentin 875/125 mg PO BID for a two week course 09/09-09/22
- follow up with podiatry
Chief Complaint
-: Other (diabetic foot infection)
Subjective / Review of Systems
afebrile
bp stable
no events overnight
Vital Signs / Physical Exam
Vital Signs
Vital Signs
Temp Pulse Resp BP Pulse Ox
99.0 F 87 18 141/84 94
09/11/25 11:00 09/11/25 11:00 09/11/25 11:00 09/11/25 11:00 09/11/25 11:00
Physical Exam
Constitutional: No Acute Distress
Cardiovascular: Regular Rate and S1/S2; Negative Murmur or Rub
Pulmonary: Clear and Symmetric; Negative Wheezes or Rales
Gastrointestinal: Soft, Non Tender, Non Distended and Normal Bowel Sounds
Skin: Warm and Dry; Negative Rash or Jaundice
Wound: Other (dressing clean, dry, intact)
Objective Data
Lab Data
Lab Results
09/11/25 05:04
09/11/25 05:04
Estimated Creat Clear > 125 ml/min 09/11/25 05:04
Lactic Acid 1.0 mmol/L (0.7-2.0) 09/09/25 08:16
Total Bilirubin 0.4 mg/dl (0.2-1.3) 09/11/25 05:04
AST 16 U/L (17-59) L 09/11/25 05:04
ALT 19 U/L (0-50) 09/11/25 05:04
Alkaline Phosphatase 91 U/L (38-126) 09/11/25 05:04
Most recent labs reviewed.
Micro Results:
09/09/25 08:16 Blood Culture - Preliminary
Blood/Venous No Growth in 48 hours- Final report to follow
09/09/25 08:16 Blood Culture - Preliminary
Blood/Venous No Growth in 48 hours- Final report to follow
09/09/25 12:57 MRSA Screen - Final
Nose No Methicillin Resistant Staphylococcus aureus isolated.
09/09/25 12:03 Wound Culture - Preliminary
Foot - Right Streptococcus agalactiae
Gram Stain - Preliminary
Care Review
Plan reviewed with: Physician (Dr Galeana - no need for intraoperative cultures)
--- NOTE | 2025-09-11 16:41 | W.PN.UPDATE ---
Update Note
Progress Note Update
Pre-Op:
Patient understands the benefits, risks, and possible complications associated with the proposed surgical procedure, including the potential need for further surgery.
Informed surgical consent obtained at bedside.
Post-Op;
Procedure: Incision and drainage of Abscess, right foot. Excisional debridement of infected and non-viable skin and superficial/deep soft tissue, right foot.
EBL: 2-3ml
Prognosis: Fair to good.
Patient tolerated the procedure and anesthesia well and was brought to the recovery room with VSS and VSI to the right LE. Post-Op condition: Stable.
Post-Op Orders:
Resume diet
NWB right foot
Crutches/Knee Scooter.
[2025-09-11 16:51] LABS: Glucose - Point of Care 131 mg/dl (70-99)
[2025-09-11] MEDS: NOVOLOG FLEXPEN-LOW RESISTANCE SC (17:25)
[2025-09-11] MEDS: LOVENOX 40 MG SC (18:18)
[2025-09-11 19:00] LABS: Glucose - Point of Care 121 mg/dl (70-99)
[2025-09-11 21:17] LABS: Glucose - Point of Care 193 mg/dl (70-99)
[2025-09-11] MEDS: TYLENOL 1000 MG PO (21:44)
[2025-09-11] MEDS: LANTUS 0.17 UNITS SC (21:45)
[2025-09-12] VITALS (9 sets, daily range): BP systolic 102–169; BP diastolic 69–104; PULSE 89–113; O2SAT 96
[2025-09-12] MEDS: VISBIOME 1 CAP PO ×2 (00:39→07:46)
[2025-09-12] MEDS: ZOSYN 50 IV ×4 (02:25→21:44)
[2025-09-12 06:30] LABS: Hematocrit 35.4 % (39.0-52.0); Hemoglobin 12.0 g/dL (13.0-18.0); Mean Corp Hgb Conc. 33.9 g/dL (33.0-37.0); Mean Corpuscular Volume 79.2 fL (80.0-94.0); Nucleated Red Blood Cells % 0 % (-); Platelet Count 370 10^3/uL (130-400); Red Cell Dist. Width 12.5 % (11.5-14.5)
[2025-09-12 07:01] LABS: ALT (SGPT) 27 U/L (0-50); AST (SGOT) 27 U/L (17-59); Albumin 3.2 g/dl (3.5-5.0); Alkaline Phosphatase 84 U/L (38-126); Blood Urea Nitrogen 11 mg/dl (9-20); Calcium 8.3 mg/dl (8.4-10.2); Carbon Dioxide 33 mmol/L (22-30); Chloride 98 mmol/L (98-107); Estimated Creatinine Clearance > 125 ml/min; Glucose 151 mg/dl (70-99); Potassium 3.3 mmol/L (3.5-5.1); Sodium 133 mmol/L (135-145); Total Protein 6.1 g/dl (6.3-8.2); eGFR > 60.00
[2025-09-12 07:38] LABS: Glucose - Point of Care 148 mg/dl (70-99)
[2025-09-12] MEDS: NOVOLOG FLEXPEN-LOW RESISTANCE SC ×3 (07:41→16:48)
[2025-09-12] MEDS: NORVASC 5 MG PO (07:46)
[2025-09-12] MEDS: ZESTRIL 5 MG PO (07:46)
[2025-09-12] MEDS: GLUCOPHAGE 500 MG PO ×2 (07:49→17:15)
[2025-09-12] MEDS: KCL 20 MEQ PO (09:17)
[2025-09-12 10:14] LABS: Glucose - Point of Care 139 mg/dl (70-99)
--- NOTE | 2025-09-12 10:20 | PTCARENOTE ---
Pt worked with therapy, ended session sitting up in chair. C/o feeling lightheaded and 'fuzzy in head' after approx 30 min. BP checked, sitting up 169/104, HR 71. BS 139, finished breakfast. Face flushed. Assisted to lying back down, reported
feeling better almost immediately. BP after lying down 149/95, HR 94. Pt instructed to inform nursing of any changes in how he's feeling, do not get up unassisted. Tele in place. Reviewed s/s hypoglycemia and importance of eating meals while
receiving DM meds.
--- NOTE | 2025-09-12 10:44 | CM ---
patient seen at bedside
PT rec SNF
options reviewed - referrals entered in [facility]
requested [facility]wants facility to be close to [place]
no pcp - information given on residency Clinic - resident Kishor Yañez requested him to make appt with her as she will also make clinic aware
PLAN: SNF, pending bed availability when stable, will need insurance authorization once bed secured
[2025-09-12] MEDS: NOVOLOG FLEXPEN 8 UNITS SC ×3 (10:46→17:15)
[2025-09-12 11:55] LABS: Glucose - Point of Care 111 mg/dl (70-99)
--- NOTE | 2025-09-12 13:00 | W.PN.HOSP.TC ---
Today's Communication/Plan
-
Monitor vital signs see plan
Continue antibiotics
Discussed with transplant case manager, needs SNF
Continue with insulin
Check orthostatics
Continue BP meds
Assessment / Plan
Assessment / Plan
Cellulitis likely secondary to diabetic foot wound
Continue with Zosyn
ID following
Podiatry following, status post debridement. MRI negative for osteo however did not show deeper abscess. s/p Incision and drainage of Abscess, right foot. Excisional debridement of infected and non-viable skin and superficial/deep soft tissue,
right foot 09/11
Wound culture growing strep
On discharge per ID transition to Augmentin for 2-week course through 09/22
Nonweightbearing on right lower extremity. Evaluated by PT, recommended SNF. Discussed with transplant case manager.
Hyponatremia
Monitor
Hypokalemia
Replete
Dizziness
Check orthostatics
Hypertension in the ED
No prior history
Likely new onset, started amlodipine. Metoprolol as needed.
Started lisinopril
Hyperglycemia
No prior history of diabetes
A1c 11.4, started insulin. Diabetes ENVIRONMENTAL COMPLIANCE TECHNICIAN following. Titrate insulin
Insulin sliding scale
DVT prophylaxis
Lovenox
Full code
Constitutional: No Acute Distress
Cardiovascular: Regular Rate and S1/S2; Negative Murmur
Pulmonary: Clear and Symmetric; Negative Wheezes, Rales or Rhonchi
Gastrointestinal: Soft, Non Tender, Non Distended and Normal Bowel Sounds
: no del valle
Wound: bandage on foot wound
I spent a total of 52 minutes with the patient or on the floor. More than 50% of this time involved counseling and coordination of care.
Anticipated Discharge: 24 - 48 hours
Subjective/Interval History
-
Date of Service: September 12, 2025
denies nausea
Objective Data
-
Labs:
Laboratory Results
09/12/25
06:21
WBC 11.3 H
Hgb 12.0 L
Hct 35.4 L
Plt Count 370
Sodium 133 L
Potassium 3.3 L
Chloride 98
Carbon Dioxide 33 H
BUN 11
Creatinine 0.7
Glucose 151 H
Calcium 8.3 L
Total Bilirubin 0.8
AST 27
ALT 27
Alkaline Phosphatase 84
Vital Signs:
Vital Signs
Temp Pulse Resp BP Pulse Ox
98.2 F 90 21 130/82 95
09/12/25 12:05 09/12/25 12:05 09/12/25 12:05 09/12/25 12:05 09/12/25 12:05
I&O
09/11/25 09/12/25 09/13/25
06:59 06:59 06:59
Intake Total 800 / 800 470 / 470
Balance 800 / 800 470 / 470
[2025-09-12] MEDS: TYLENOL 650 MG PO (13:15)
--- NOTE | 2025-09-12 14:36 | W.PN.POD ---
Today's Communication
Today's Communication
No clinical signs of infection.
Anticipate discharge to SNF.
Assessment / Plan
-
Assessment:
Diabetic foot infection, right, with deep midfoot and forefoot abscess.
S/P one day Incision & Drainage w/ full soft tissue thickness debridement, right foot.
Leukocytosis resolving.
Plan:
No clinical signs of infection, right foot.
Discharge planning underway- PT/OT recommend D/C to SNF. NWB on right foot.
Daily wound care orders: Saline wet to dry dressing with ABD, Kerlix, and ZEENAT. No packing necessary.
If discharged on Sunday, patient will follow up in my office on Sunday or Sunday at the latest.
Please call as necessary.
Subjective
Chief Complaint
Status post 1 day I&D/Debridement diabetic foot infection, right.
Subjective
Patient resting comfortably in bed. States he had a minor GI issue overnight. Denies fever, chills or sweats. Minimal to no pain in right foot, last took Tylenol only.
Objective
Temp Pulse Resp BP Pulse Ox
98.2 F 90 21 130/82 95
09/12/25 12:05 09/12/25 12:05 09/12/25 12:05 09/12/25 12:05 09/12/25 12:05
09/12/25 06:21
09/12/25 06:21
Vital Signs and Lab results were reviewed.
Afebrile, VSS.
WBC reduced to 11.3, mild elevation at this point likely due to Post-Op procedure/anesthesia status.
VSI to the RLE.
Dressing to the right foot intact with mild serosanguineous staining plantarly.
Surgical site, 6-8cm linear incision/defect along the central plantar forefoot and midfoot, right appears clean and dry with wound edges viable and capillary refill WNL.
The wound edges are contracted, actually apposed distally and only 1cm gap proximally. This probes approximately 2cm deep.
No edema, erythema, or cellulitis. No malodor, active discharge, purulence, necrosis, cyanosis nor local signs of infection noted.
[2025-09-12 16:24] LABS: Glucose - Point of Care 144 mg/dl (70-99)
[2025-09-12] MEDS: LOVENOX 40 MG SC (17:15)
[2025-09-12 20:37] LABS: Glucose - Point of Care 129 mg/dl (70-99)
[2025-09-12] MEDS: LANTUS 0.17 UNITS SC (21:47)
[2025-09-13 03:00] VITALS: BP 147/86
[2025-09-13] MEDS: ZOSYN 50 IV ×4 (03:07→20:05)
[2025-09-13 07:35] VITALS: BP 150/95
[2025-09-13 08:01] LABS: Glucose - Point of Care 106 mg/dl (70-99)
[2025-09-13] MEDS: NOVOLOG FLEXPEN-LOW RESISTANCE SC ×3 (08:14→16:41)
[2025-09-13] MEDS: VISBIOME 1 CAP PO ×2 (08:17→22:09)
[2025-09-13] MEDS: GLUCOPHAGE 500 MG PO ×2 (08:17→17:14)
[2025-09-13] MEDS: NORVASC 5 MG PO (08:19)
[2025-09-13] MEDS: ZESTRIL 5 MG PO (08:19)
[2025-09-13] MEDS: NOVOLOG FLEXPEN 8 UNITS SC ×3 (08:22→17:17)
[2025-09-13 10:32] LABS: ALT (SGPT) 31 U/L (0-50); AST (SGOT) 31 U/L (17-59); Albumin 3.2 g/dl (3.5-5.0); Alkaline Phosphatase 94 U/L (38-126); Blood Urea Nitrogen 8 mg/dl (9-20); Calcium 8.4 mg/dl (8.4-10.2); Carbon Dioxide 29 mmol/L (22-30); Chloride 99 mmol/L (98-107); Estimated Creatinine Clearance > 125 ml/min; Glucose 93 mg/dl (70-99); Potassium 3.5 mmol/L (3.5-5.1); Sodium 136 mmol/L (135-145); Total Protein 6.2 g/dl (6.3-8.2); eGFR > 60.00
[2025-09-13 10:37] LABS: Hematocrit 36.3 % (39.0-52.0); Hemoglobin 11.8 g/dL (13.0-18.0); Mean Corp Hgb Conc. 32.5 g/dL (33.0-37.0); Mean Corpuscular Volume 83.4 fL (80.0-94.0); Nucleated Red Blood Cells % 0 % (-); Platelet Count 419 10^3/uL (130-400); Red Cell Dist. Width 12.6 % (11.5-14.5)
[2025-09-13 11:47] LABS: Glucose - Point of Care 96 mg/dl (70-99)
--- NOTE | 2025-09-13 12:27 | W.PN.HOSP.TC ---
Today's Communication/Plan
-
Monitor vital signs and see plan
Check chest x-ray
PT
Continue with insulin teaching
Need placement, director case management aware
abx
Assessment / Plan
Assessment / Plan
Cellulitis likely secondary to diabetic foot wound
Continue with Zosyn
ID following
Podiatry following, status post debridement. MRI negative for osteo however did not show deeper abscess. s/p Incision and drainage of Abscess, right foot. Excisional debridement of infected and non-viable skin and superficial/deep soft tissue,
right foot 09/11
Wound culture growing strep
On discharge per ID transition to Augmentin for 2-week course through 09/22
Nonweightbearing on right lower extremity. Evaluated by PT, recommended SNF. Discussed with director case management.
Shortness of breath, no hypoxia
Check chest x-ray
Order IS
Hyponatremia
Monitor
Hypokalemia
Replete
Dizziness
improving
Hypertension in the ED
No prior history
Likely new onset, started amlodipine. Metoprolol as needed.
Started lisinopril
Hyperglycemia
No prior history of diabetes
A1c 11.4, started insulin. Diabetes HAIR SPINNING MACHINE OPERATOR following. Titrate insulin
Insulin sliding scale
DVT prophylaxis
Lovenox
Full code
Constitutional: No Acute Distress
Cardiovascular: Regular Rate and S1/S2; Negative Murmur
Pulmonary: Clear and Symmetric; Negative Wheezes, Rales or Rhonchi
Gastrointestinal: Soft, Non Tender, Non Distended and Normal Bowel Sounds
: no del valle
Wound: bandage on foot wound
I spent a total of 51 minutes with the patient or on the floor. More than 50% of this time involved counseling and coordination of care.
Anticipated Discharge: Within 24 hours
Subjective/Interval History
-
Date of Service: September 13, 2025
Denies nausea
Objective Data
-
Labs:
Laboratory Results
09/13/25
06:34
WBC 6.6
Hgb 11.8 L
Hct 36.3 L
Plt Count 419 H
Sodium 136
Potassium 3.5
Chloride 99
Carbon Dioxide 29
BUN 8 L
Creatinine 0.6 L
Glucose 93
Calcium 8.4
Total Bilirubin 0.6
AST 31
ALT 31
Alkaline Phosphatase 94
Vital Signs:
Vital Signs
Temp Pulse Resp BP Pulse Ox
98.3 F 113 21 150/95 93
09/13/25 07:35 09/13/25 07:35 09/13/25 07:35 09/13/25 07:35 09/13/25 07:35
I&O
09/12/25 09/13/25 09/14/25
06:59 06:59 06:59
Intake Total 470 / 470 1440 / 1440
Balance 470 / 470 1440 / 1440
[2025-09-13 12:39] VITALS: BP 161/80
[2025-09-13 16:10] VITALS: BP 140/90
[2025-09-13 16:18] LABS: Glucose - Point of Care 100 mg/dl (70-99)
[2025-09-13] MEDS: LOVENOX 40 MG SC (17:18)
[2025-09-13 19:43] VITALS: BP 146/89
[2025-09-13 21:22] LABS: Glucose - Point of Care 117 mg/dl (70-99)
[2025-09-13] MEDS: LANTUS 0.17 UNITS SC (22:10)
[2025-09-13 23:51] VITALS: BP 146/88
[2025-09-14] MEDS: ZOSYN 50 IV ×4 (01:53→21:23)
[2025-09-14 07:00] VITALS: BP 145/95
--- NOTE | 2025-09-14 07:23 | PN.DE.MGMTRT ---
Insulin Management
- -
09/14/2025: Diabetes Management Follow up
49 year old male without significant past medical history and does not follow-up with primary care provider, who presented to the ED with worsening right foot swelling and redness consistent with cellulitis. X-rays negative for osteomyelitis. Noted
for elevated glucose of and an A1C of 11.45 on admission.
Pt awake, alert, oriented, resting in bed, c/o diarrhea, likely a GI SE from Metformin, able to discuss diabetes care plan
Of note patient was not aware of diabetes Dx and does not regularly see his PCP for routine care.
09/10 started Lantus and AC NovoLog. Glucose has improved to premeal 90 to 106. Received 17 units Lantus @ HS, Fasting 90 POC today
Will make no changes to current regimen; Lantus to 17 units @ HS and AC NovoLog to 8 units. Cont Metformin 500 mg BID and low corrective with meals.
Discussed with Nurse. Will cont to follow
Pt was seen by the Diabetes Nurse Educator for monitor and insulin instructions last week.
Diabetes History
- -
Type of Diabetes: 2 requiring insulin
Pre-Admission Diabetes Regimen
09/13/25
06:34
Creatinine 0.6 L
Lab Results
Hemoglobin A1c 11.4 % (4.0-5.9) H 09/09/25 08:16
Insulin Pump Settings
IP Diabetes Regimen
09/13/25 09/13/25 09/13/25
06:34 08:00 11:46
Glucose 93
POC Glucose 106 H 96
09/13/25 09/13/25
16:16 21:21
Glucose
POC Glucose 100 H 117 H
Meal type: Lunch
Meal type: Breakfast
Amount consumed: 100%
Amount consumed: 50%
Patient Education
[2025-09-14 08:02] LABS: Glucose - Point of Care 90 mg/dl (70-99)
[2025-09-14] MEDS: NOVOLOG FLEXPEN-LOW RESISTANCE SC ×3 (08:42→16:43)
[2025-09-14] MEDS: ZESTRIL 5 MG PO (08:44)
[2025-09-14] MEDS: NORVASC 5 MG PO (08:44)
[2025-09-14] MEDS: VISBIOME 1 CAP PO (08:44)
[2025-09-14] MEDS: NOVOLOG FLEXPEN 8 UNITS SC ×3 (08:44→17:43)
[2025-09-14] MEDS: GLUCOPHAGE 500 MG PO ×2 (08:44→17:48)
[2025-09-14 09:16] LABS: Hematocrit 37.6 % (39.0-52.0); Hemoglobin 12.4 g/dL (13.0-18.0); Mean Corp Hgb Conc. 33.0 g/dL (33.0-37.0); Mean Corpuscular Volume 83.0 fL (80.0-94.0); Nucleated Red Blood Cells % 0 % (-); Platelet Count 425 10^3/uL (130-400); Red Cell Dist. Width 12.6 % (11.5-14.5)
[2025-09-14] MEDS: IMODIUM 4 MG PO (09:55)
[2025-09-14 10:09] LABS: ALT (SGPT) 40 U/L (0-50); AST (SGOT) 42 U/L (17-59); Albumin 3.3 g/dl (3.5-5.0); Alkaline Phosphatase 82 U/L (38-126); Blood Urea Nitrogen 8 mg/dl (9-20); Calcium 8.5 mg/dl (8.4-10.2); Carbon Dioxide 30 mmol/L (22-30); Chloride 101 mmol/L (98-107); Estimated Creatinine Clearance > 125 ml/min; Glucose 86 mg/dl (70-99); Sodium 139 mmol/L (135-145); Total Protein 6.3 g/dl (6.3-8.2); eGFR > 60.00
--- NOTE | 2025-09-14 10:16 | W.PN.ID1 ---
Date of Service
Date of Service: September 14, 2025
Today's Communication
- continue zosyn while inpatient, on discharge can transition to augmentin 875/125 mg PO BID for a two week course 09/09-09/22
Assessment / Plan
Diabetic Foot Infection
DM2
- blood cultures x2 in progress
- wound culture - group B streptococcus
- MRSA screen negative
- Xray without evidence of osteomyelitis, MRI with complex abscess/myositis in flexor digitorum longus and cellulitis; no evidence of osteomyelitis
- s/p I&D of the R foot 09/11
- recommend tight blood glucose control to facilitate wound healing - discussed with patient 09/09
- continue zosyn while inpatient, on discharge can transition to augmentin 875/125 mg PO BID for a two week course 09/09-09/22
- follow up with podiatry
Chief Complaint
-: Other (diabetic foot infection)
Subjective / Review of Systems
afebrile
bp stable
no complaints
Vital Signs / Physical Exam
Vital Signs
Vital Signs
Temp Pulse Resp BP Pulse Ox
98.4 F 80 18 145/95 96
09/14/25 07:00 09/14/25 07:00 09/14/25 07:00 09/14/25 07:00 09/14/25 07:00
Physical Exam
Constitutional: No Acute Distress
Cardiovascular: Regular Rate and S1/S2; Negative Murmur or Rub
Pulmonary: Clear and Symmetric; Negative Wheezes or Rales
Gastrointestinal: Soft, Non Tender, Non Distended and Normal Bowel Sounds
Skin: Warm and Dry; Negative Rash or Jaundice
Wound: Other (linear incision, no surrounding erythema or purulence, well approximated)
Objective Data
Lab Data
Lab Results
09/14/25 08:10
09/14/25 08:10
Estimated Creat Clear > 125 ml/min 09/14/25 08:10
Lactic Acid 1.0 mmol/L (0.7-2.0) 09/09/25 08:16
Total Bilirubin 0.3 mg/dl (0.2-1.3) 09/14/25 08:10
AST 42 U/L (17-59) 09/14/25 08:10
ALT 40 U/L (0-50) 09/14/25 08:10
Alkaline Phosphatase 82 U/L (38-126) 09/14/25 08:10
Most recent labs reviewed.
Micro Results:
09/09/25 08:16 Blood Culture - Final
Blood/Venous No Growth - Final Report
09/09/25 08:16 Blood Culture - Final
Blood/Venous No Growth - Final Report
09/12/25 01:03 C. difficile GDH Antigen & Toxins - Final
Feces/Stool Negative for toxigenic C.difficile
09/09/25 12:03 Wound Culture - Final
Foot - Right Streptococcus agalactiae
Gram Stain - Final
09/09/25 12:57 MRSA Screen - Final
Nose No Methicillin Resistant Staphylococcus aureus isolated.
[2025-09-14 10:24] LABS: Potassium 3.5 mmol/L (3.5-5.1)
--- NOTE | 2025-09-14 10:47 | W.PN.HOSP.TC ---
Today's Communication/Plan
-
Imodium prn
po abx on dc
await placement
poc stable
Assessment / Plan
Assessment / Plan
#Cellulitis likely secondary to diabetic foot wound
Continue with Zosyn
ID following
Podiatry following, status post debridement. MRI negative for osteo however did not show deeper abscess. s/p Incision and drainage of Abscess, right foot. Excisional debridement of infected and non-viable skin and superficial/deep soft tissue,
right foot 09/11
Wound culture growing strep
On discharge per ID transition to Augmentin for 2-week course through 09/22
Nonweightbearing on right lower extremity. Evaluated by PT, recommended SNF. Discussed with caseworker protective services.
#Shortness of breath, no hypoxia
Check chest [id number] for infiltrate
Order IS
stable on room air.
#Loose bowel movements likely INES vs ? low likelihood of metformin related
probiotics started
cdiff negative
imodium prn
#Hyponatremia
Monitor
#Hypokalemia
Replete
Dizziness
improving
HR elevated at times.
#Hypertension in the ED
No prior history
Likely new onset, started amlodipine. Metoprolol as needed.
Started lisinopril
Hyperglycemia
No prior history of diabetes
A1c 11.4, started insulin. Diabetes SEMICONDUCTOR LAB TECHNICIAN following. Titrate insulin
Continue lantus 17u qhs and novolog 8u AC.
Insulin sliding scale
POC am 90
DVT prophylaxis
Lovenox
Full code
Constitutional: No Acute Distress
Cardiovascular: Regular Rate and S1/S2; Negative Murmur
Pulmonary: Clear and Symmetric; Negative Wheezes, Rales or Rhonchi
Gastrointestinal: Soft, Non Tender, Non Distended and Normal Bowel Sounds
: no del valle
Wound: bandage on foot wound
Anticipated Discharge: Today
Subjective/Interval History
-
Date of Service: September 14, 2025
states of multiple loose bm overnight
Objective Data
-
Labs:
Laboratory Results
09/14/25
08:10
WBC 5.4
Hgb 12.4 L
Hct 37.6 L
Plt Count 425 H
Sodium 139
Potassium 3.5
Chloride 101
Carbon Dioxide 30
BUN 8 L
Creatinine 0.7
Glucose 86
Calcium 8.5
Total Bilirubin 0.3
AST 42
ALT 40
Alkaline Phosphatase 82
Vital Signs:
Vital Signs
Temp Pulse Resp BP Pulse Ox
98.4 F 80 18 145/95 96
09/14/25 07:00 09/14/25 07:00 09/14/25 07:00 09/14/25 07:00 09/14/25 07:00
I&O
09/13/25 09/14/25 09/15/25
06:59 06:59 06:59
Intake Total 1440 / 1440 1840 / 1840 240 / 240
Balance 1440 / 1440 1840 / 1840 240 / 240
Data Reviewed
-
Total Time Spent with Patient (in minutes): 55
[2025-09-14 11:55] LABS: Glucose - Point of Care 105 mg/dl (70-99)
--- NOTE | 2025-09-14 12:19 | CM ---
Addendum entered by Phoebe Quintana 09/14/25 15:10:
Clinical information faxed to [facility] today; /fax [phone]; [facility] made aware and per liaison plan to accept. CM will continue to follow for discharge planning needs.
Plan; SNF; pending auth
Please call report to [phone]/fax [phone] when auth confirmed.
Original Note:
Patient seen at bedside on . Patient stated that he would like to go to [facility] and is aware the he will need an auth from insurance. CM will text physician to confirm plan. CM will continue to follow for discharge planning needs.
Plan; SNF
[2025-09-14 12:25] VITALS: BP 171/102; BP 179/100; BP 183/106; PULSE 91; PULSE 93; O2SAT 95
[2025-09-14] MEDS: NSS 1000 IV (12:46)
[2025-09-14 13:55] VITALS: BP 171/102; BP 179/100; PULSE 91
[2025-09-14 15:00] VITALS: BP 156/91
[2025-09-14 16:40] LABS: Glucose - Point of Care 99 mg/dl (70-99)
[2025-09-14] MEDS: LOVENOX 40 MG SC (17:48)
[2025-09-14 21:21] LABS: Glucose - Point of Care 122 mg/dl (70-99)
[2025-09-14] MEDS: LANTUS 0.17 UNITS SC (21:23)
[2025-09-14 23:19] VITALS: BP 134/69
[2025-09-15] MEDS: ZOSYN 50 IV ×3 (02:31→13:21)
[2025-09-15 06:19] LABS: Blood Urea Nitrogen 7 mg/dl (9-20); Calcium 8.7 mg/dl (8.4-10.2); Carbon Dioxide 31 mmol/L (22-30); Chloride 103 mmol/L (98-107); Estimated Creatinine Clearance > 125 ml/min; Glucose 102 mg/dl (70-99); Magnesium 2.1 mg/dl (1.6-2.3); Potassium 4.0 mmol/L (3.5-5.1); Sodium 141 mmol/L (135-145); eGFR > 60.00
[2025-09-15 07:00] VITALS: BP 147/94
--- NOTE | 2025-09-15 07:24 | PN.DE.MGMTRT ---
Insulin Management
- -
09/15/2025: Diabetes Management Follow up
49 year old male admitted with worsening right foot swelling and redness consistent with cellulitis. No significant past medical history, does not follow-up with primary care provider. Noted for elevated glucose and A1C of 11.45 on admission.
Prior to admission was taking no medication for diabetes. A1C 11.4%, cr .8, eGFR > 60.
Pt awake, alert, oriented, resting in bed, able to discuss diabetes care plan
09/15 Fasting glucose today 102, yesterday range 90 to 122. Patient receiving metformin 500 mg BID, novolog 8 units AC with low corrective and 17 units lantus at HS. Will make no change to regimen.
Discussed with Nurse. Will cont to follow.
Pt was seen by the Diabetes Nurse Educator for monitor and insulin instructions.
Diabetes History
- -
Type of Diabetes: 2 requiring insulin
Pre-Admission Diabetes Regimen
09/14/25 09/15/25
08:10 05:17
Creatinine 0.7 0.8
Lab Results
Hemoglobin A1c 11.4 % (4.0-5.9) H 09/09/25 08:16
Insulin Pump Settings
IP Diabetes Regimen
09/14/25 09/14/25 09/14/25
08:01 08:10 11:53
Glucose 86
POC Glucose 90 105 H
09/14/25 09/14/25 09/15/25
16:39 21:20 05:17
Glucose 102 H
POC Glucose 99 122 H
Meal type: Dinner
Meal type: Lunch
Meal type: Breakfast
Amount consumed: 100%
Amount consumed: 100%
Amount consumed: 100%
Patient Education
[2025-09-15 07:57] LABS: Glucose - Point of Care 89 mg/dl (70-99)
[2025-09-15] MEDS: NOVOLOG FLEXPEN-LOW RESISTANCE SC ×2 (08:21→13:14)
--- NOTE | 2025-09-15 08:25 | CM ---
Addendum entered by Phoebe Quintana 09/15/25 11:19:
physician confirmed transfer to [facility]. Please call [phone]. CM will confirm with patient, pending time for ambulance. CM will continue to follow for discharge planning needs.
Plan; SNF
Original Note:
Auth received today for patient to go to [facility]. Patient authorization number [id number] approved 09/15-10/15/25. CM updated liaison and they will have a bed today. CM will update patient physician. CM will continue to follow for
discharge planning needs.
[2025-09-15] MEDS: GLUCOPHAGE 500 MG PO (08:43)
[2025-09-15] MEDS: ZESTRIL 5 MG PO (08:43)
[2025-09-15] MEDS: NORVASC 5 MG PO (08:43)
[2025-09-15] MEDS: VISBIOME 1 CAP PO (08:43)
[2025-09-15] MEDS: NOVOLOG FLEXPEN 8 UNITS SC ×2 (08:44→13:15)
--- NOTE | 2025-09-15 10:40 | W.PN.ID1 ---
Date of Service
Date of Service: September 15, 2025
Today's Communication
- continue zosyn while inpatient, on discharge can transition to augmentin 875/125 mg PO BID for a two week course 09/09-09/22
Assessment / Plan
Diabetic Foot Infection
DM2
- blood cultures x2 in progress
- wound culture - group B streptococcus
- MRSA screen negative
- Xray without evidence of osteomyelitis, MRI with complex abscess/myositis in flexor digitorum longus and cellulitis; no evidence of osteomyelitis
- s/p I&D of the R foot 09/11
- recommend tight blood glucose control to facilitate wound healing
- continue zosyn while inpatient, on discharge can transition to augmentin 875/125 mg PO BID for a two week course 09/09-09/22
- follow up with podiatry
Chief Complaint
-: Other (diabetic foot infection)
Subjective / Review of Systems
afebrile
bp stable
no events overnight
no complaints
Vital Signs / Physical Exam
Vital Signs
Vital Signs
Temp Pulse Resp BP Pulse Ox
97.9 F 80 18 147/94 94
09/15/25 07:00 09/15/25 08:43 09/15/25 07:00 09/15/25 08:43 09/15/25 07:00
Physical Exam
Constitutional: No Acute Distress
Cardiovascular: Regular Rate and S1/S2; Negative Murmur or Rub
Pulmonary: Clear and Symmetric; Negative Wheezes or Rales
Gastrointestinal: Soft, Non Tender, Non Distended and Normal Bowel Sounds
Skin: Warm and Dry; Negative Rash or Jaundice
Wound: Other (deferred dressing take down, clean, dry, intact)
Objective Data
Lab Data
Lab Results
09/14/25 08:10
09/15/25 05:17
Estimated Creat Clear > 125 ml/min 09/15/25 05:17
Lactic Acid 1.0 mmol/L (0.7-2.0) 09/09/25 08:16
Total Bilirubin 0.3 mg/dl (0.2-1.3) 09/14/25 08:10
AST 42 U/L (17-59) 09/14/25 08:10
ALT 40 U/L (0-50) 09/14/25 08:10
Alkaline Phosphatase 82 U/L (38-126) 09/14/25 08:10
Most recent labs reviewed.
Micro Results:
09/09/25 08:16 Blood Culture - Final
Blood/Venous No Growth - Final Report
09/09/25 08:16 Blood Culture - Final
Blood/Venous No Growth - Final Report
09/12/25 01:03 C. difficile GDH Antigen & Toxins - Final
Feces/Stool Negative for toxigenic C.difficile
09/09/25 12:03 Wound Culture - Final
Foot - Right Streptococcus agalactiae
Gram Stain - Final
09/09/25 12:57 MRSA Screen - Final
Nose No Methicillin Resistant Staphylococcus aureus isolated.
--- NOTE | 2025-09-15 10:45 | W.PN.HOSP.TC ---
Today's Communication/Plan
-
dc to snf
basal/bolus
po abx
Assessment / Plan
Assessment / Plan
Constitutional: No Acute Distress
Cardiovascular: Regular Rate and S1/S2; Negative Murmur
Pulmonary: Clear and Symmetric; Negative Wheezes, Rales or Rhonchi
Gastrointestinal: Soft, Non Tender, Non Distended and Normal Bowel Sounds
: no [place]
Wound: bandage on foot wound
#Cellulitis likely secondary to diabetic foot wound
Continue with Zosyn
ID following
Podiatry following, status post debridement. MRI negative for osteo however did not show deeper abscess. s/p Incision and drainage of Abscess, right foot. Excisional debridement of infected and non-viable skin and superficial/deep soft tissue,
right foot 09/11
Wound culture growing strep
On discharge per ID transition to Augmentin for 2-week course through 09/22
Nonweightbearing on right lower extremity. Evaluated by PT, recommended SNF. Discussed with case filler.
#Shortness of breath, no hypoxia
Check chest [id number] for infiltrate
Order IS
stable on room air. resolved
#Loose bowel movements likely INES vs ? low likelihood of metformin related
probiotics started
cdiff negative
imodium prn
#Hyponatremia
Monitor
#Hypokalemia
Replete
Dizziness
improved
HR elevated at times.
#Hypertension in the ED
No prior history
Likely new onset, started amlodipine. Metoprolol as needed.
Started lisinopril
orthos negative
Hyperglycemia
No prior history of diabetes
A1c 11.4, started insulin. Diabetes [employer] following. Titrate insulin
Continue lantus 17u qhs and novolog 8u AC.
Insulin sliding scale
POC am 89
DVT prophylaxis
Lovenox
Full code
More than 30 minutes spent in discharge including
Final examination of the patient
Summarizing hospital stay
Instructions for continuing care to all relevant caregivers
Preparation of discharge records, prescriptions, and referral forms
Total time spent (in minutes): 55
Anticipated Discharge: Today
Subjective/Interval History
-
Date of Service: September 15, 2025
states feeling better compared to yesterday
loose bm has slowed down
Objective Data
-
Labs:
Laboratory Results
09/15/25
05:17
Sodium 141
Potassium 4.0
Chloride 103
Carbon Dioxide 31 H
BUN 7 L
Creatinine 0.8
Glucose 102 H
Calcium 8.7
Vital Signs:
Vital Signs
Temp Pulse Resp BP Pulse Ox
97.9 F 80 18 147/94 94
09/15/25 07:00 09/15/25 08:43 09/15/25 07:00 09/15/25 08:43 09/15/25 07:00
I&O
09/14/25 09/15/25 09/16/25
06:59 06:59 06:59
Intake Total 1839 / 0 2300 / 2300
Balance 0 / 1840 2300 / 2300
--- NOTE | 2025-09-15 10:47 | W.DCSUMMARY ---
Discharge Summary
Discharge Data
Date of Admission: 09/09/25
Date of Discharge: 09/15/25
-
Pending Results: No
Hospital Course
49-year-old male without significant past medical history does not follow with primary care provider who is presented to hospital with worsening of right foot swelling and redness. Upon admission patient was found of cellulitis. Podiatry and
infectious disease evaluated the patient. Patient underwent incision and drainage great. Tissue thickness debridement. Infectious disease evaluated patient and patient was signed on IV antibiotic with Zosyn. Plan will be to transition patient to
p.o. Augmentin upon discharge. Patient was also found to have a uncontrolled diabetes. Diabetic nurse practitioner evaluated patient. Patient was on basal bolus regimen. Patient's sugars improved with insulin. Patient was also complaining of
diarrhea which improved with Imodium. C. difficile was negative. Patient also with uncontrolled blood pressure and was started on antihypertensive medication with Norvasc and lisinopril. Blood pressure improved. Patient was eval by physical
therapy. [facility]
Discharge Plan
-
Patient Disposition: Fpc/SNF
Discharge Diagnosis/Procedures: Cellulitis likely secondary to diabetic foot wound
Shortness of breath,
Loose bowel movements
Hyponatremia
Hypokalemia
Primary HTN
DM2
Condition: Good
Diet: Diabetic, Carb Controlled
Activity: Do not bear weight R leg
Driving Restrictions: Not until seen by your Dr
Wound Care: Daily wound care orders: Saline wet to dry dressing with ABD, Kerlix, and ZEENAT. No packing necessary.
Referrals:
Mao Galeana DPM [Specified Professional Personl, Podiatry] - in one to two days
Kishor Ozuna MD, Resident [Family Practice Resident Year3, General] - in less than 1 week
NONE,* [Family Provider, Internal Medicine]
Prescriptions:
New
(DME) pen needle, diabetic [Susie 2nd Gen Pen Needle] 32 gauge x 5/32' Needle
Qty: 1,200 0RF
Rx Instructions:
Pt taking insulin 4 times a day
(DME) blood-glucose meter [Accu-Chek Guide Glucose Meter] Misc
Qty: 1 0RF
Rx Instructions:
Pt taking insulin 4 times a day
(DME) Accu-Chek Guide test strips Strip
Qty: 200 0RF
Rx Instructions:
Pt taking insulin 4 times a day
(DME) lancets [Accu-Chek Softclix Lancets] Misc
Qty: 200 0RF
Rx Instructions:
Pt taking insulin 4 times a day
metformin 500 mg Tablet
500 mg PO BID@0800,1700 Qty: 60 0RF
loperamide 2 mg Capsule
2 mg PO Q6HPRN PRN (Reason: Diarrhea) Qty: 5 0RF
amlodipine 5 mg Tablet
5 mg PO DAILY Qty: 30 0RF
insulin aspart U-100 100 unit/mL (3 mL) Insulin Pen
8 unit SC AC Qty: 15 0RF
Insulin Glargine Lantus [Lantus] 17 UNITS
Subcutaneous Insulin Syringe [Syringe-Insulin] 0 UNIT
As Directed mls/hr SC HS
Ordered By: Jun Calabrese MD
Last Taken: 09/14/25 21:23 0.17 mls
lisinopril 5 mg Tablet
5 mg PO DAILY Qty: 30 0RF
Lactobac/Bifidobac [Visbiome]
1 cap PO DAILY 14 Days Qty: 14 0RF
amoxicillin-pot clavulanate 875-125 mg tablet
1 tab PO Q12H Qty: 15 0RF
Discharge Orders:
Discharge Patient (As Directed); Ordered 09/15/25
Ordered By: Jun Calabrese
Discharge Date and Time
Print Language: GREENLANDIC
[2025-09-15 11:44] LABS: Glucose - Point of Care 94 mg/dl (70-99)
[2025-09-15 14:08] VITALS: BP 153/81
== END 2025-09-15 15:05 | DRG 623 ==
LOC: 3 WEST ACU 10:36
PROVIDERS: Physician Assistant; Student in an Organized Health Care Education/Training Program; ADMITTING PHYSICIAN Internal Medicine; ATTENDING PHYSICIAN Hospitalist; CONSULT PHYSICIAN Student in an Organized Health Care Education/Training Program; EMERGENCY PHYSICIAN Emergency Medicine; OTHER PHYSICIAN Podiatrist Foot & Ankle Surgery
PROC: 0JBQ0ZZ Excision of Right Foot Subcutaneous Tissue and Fascia, Open Approach (ICD-10-PCS; 2025-09-10)
DX: E11.628 Type 2 diabetes mellitus with other skin complications (principal); E87.1 Hypo-osmolality and hyponatremia; L03.115 Cellulitis of right lower limb; L02.611 Cutaneous abscess of right foot; R42 Dizziness and giddiness; R06.02 Shortness of breath; S90.821A Blister (nonthermal), right foot, initial encounter; I10 Essential (primary) hypertension; E66.9 Obesity, unspecified; E11.65 Type 2 diabetes mellitus with hyperglycemia; R19.7 Diarrhea, unspecified; E87.6 Hypokalemia; Z68.32 Body mass index [BMI] 32.0-32.9, adult; Z79.4 Long term (current) use of insulin; Z79.899 Other long term (current) drug therapy; X50.9XXA Other and unspecified overexertion or strenuous movements or postures, initial encounter
CPT/HCPCS: 71046; 73630; 73720; 80048; 80053; 82962; 83036; 83605; 83735; 85025; 87040; 87070; 87077; 87147; 87205; 87324; 87449; 93005; 96365; 97163; 97166; 97530; 97535; 99285; A9575